=== PATIENT | female | born 1960 | race Caucasian/White ===

== ENCOUNTER 2019-07-30 18:25 | Emergency (ER) | payer BC ==
[~2019-07-30] VITALS: Ht 165.1 cm; Wt 64.9 kg
[2019-07-30] MEDS ORDERED: NKM (18:34)
[2019-07-30 18:45] VITALS: BP 162/90
--- NOTE | 2019-07-30 18:48 | NUR ---
ED Nurse Note: pt has an insect bite to rt leg. ermd at bed side awaiting nsg orders
[2019-07-30] MEDS ORDERED: CLINDAMYCIN HC300 MG ORAL (18:58)
--- NOTE | 2019-07-30 19:09 | NUR ---
ED Nurse Note: pt cleared to be d/c per er provider, pt discharge and aftercare instruction provided w/ prescription pt education done via discussion and handout, pt advised to follow up with pcp or return to ed if changes in condition, vss, ambulatory w/ steady gait, left w/ all belongings.
[2019-07-30 19:10] VITALS: BP 129/86
--- NOTE | 2019-07-30 21:02 | Emergency Room Report ---
History of Present Illness General Chief Complaint: Animal Bite Source: Patient Present Illness HPI 58-year-old male presents ED for evaluation. Patient states that she has a area of redness and swelling to her right leg for the last 2 days. Pain is dull , 5 out of 10, nonradiating. States it is itchy. Believes it could be a spider bite. Denies fevers or chills. Denies recent travel. States her boyfriend has a similar bite to his leg. No other aggravating relieving factors. Denies any other associated symptoms Allergies: Coded Allergies: No Known Allergies (Unverified , 07/30/19) Patient History Past Medical History: none Past Surgical History: none Pertinent Family History: none Social History: Denies: smoking, alcohol use, drug use Last Menstrual Period: 10 YEARS AGO Now: No Immunizations: UTD Reviewed Nursing Documentation: PMH: Agreed; PSxH: Agreed Nursing Documentation-PMH Past Medical History: No Stated History Review of Systems All Other Systems: negative except mentioned in HPI Physical Exam Vital Signs Date Time Temp Pulse Resp B/P (MAP) Pulse Ox O2 Delivery O2 Flow Rate FiO2 07/30/19 18:31 98.1 62 16 162/90 (114) 98 Room Air Sp02 EP Interpretation: reviewed, normal General Appearance: no apparent distress, alert, GCS 15, non-toxic Head: normocephalic Eyes: bilateral eye normal inspection, bilateral eye PERRL ENT: normal ENT inspection Neck: normal inspection Respiratory: normal inspection Cardiovascular #1: normal inspection Gastrointestinal: normal inspection Rectal: deferred Genitourinary: no CVA tenderness Musculoskeletal: normal inspection Neurologic: alert, oriented x3, responsive, motor strength/tone normal, sensory intact, speech normal Psychiatric: normal inspection Skin: other - 5x3cm area of erythema/induration R anterior edwards. No fluctuance or discharge Lymphatic: normal inspection Medical Decision Making Diagnostic Impression: Primary Impression: Insect bite Qualified Codes: S80.861A - Insect bite (nonvenomous), right lower leg, initial encounter; W57.XXXA - Bitten or stung by nonvenomous insect and other nonvenomous arthropods, initial encounter ER Course Hospital Course 58 yo F presents with pain/redness to R edwards Differential diagnoses include: Cellulitis, dermatitis, insect bite, abscess Clinical course Patient placed on stretcher. After initial history, physical exam reveals an elderly female in no acute distress. On exam there is a site for mild erythema and induration to the right edwards. There is no fluctuance. Patient afebrile, vitals stable. I discussed findings with patient. Will discharge home with antibiotics. Warm compresses. Safe for discharge for close outpatient follow-up. States she has a PMD Diagnosis - insect bite stable and discharged to home with prescription for clindamycin. warm compresses. Instructed to followup with PMD. Instructed return to ED if symptoms recur or worsen Last Vital Signs Date Time Temp Pulse Resp B/P (MAP) Pulse Ox O2 Delivery O2 Flow Rate FiO2 07/30/19 19:10 98.4 68 16 129/86 98 Room Air Status: improved Disposition: HOME, SELF-CARE Condition: Stable Scripts Clindamycin Hcl (CLINDAMYCIN HCL) 300 Mg Capsule 300 MG ORAL THREE TIMES A DAY, #21 CAP Prov: Abisai Del Castillo MD 07/30/19 Referrals: NON PHYSICIAN (PCP) Patient Instructions: Insect Bite, [id number] Abisai Del Castillo MD Jul 30, 2019 21:02
== END 2019-07-30 19:16 | disposition home or self-care (01) ==
LOC: EMR 18:45
DX: S80.861A Insect bite (nonvenomous), right lower leg, initial encounter (principal); W57.XXXA Bitten or stung by nonvenomous insect and other nonvenomous arthropods, initial encounter; Y92.9 Unspecified place or not applicable
CPT/HCPCS: 99282